=== PATIENT | female | born 1995 | race African-American/Black ===

== ENCOUNTER 2016-10-05 11:36 | Emergency (ER) | payer MEDICAID ==
[~2016-10-05] VITALS: Ht 165.1 cm; Wt 77.6 kg
[2016-10-05 13:07] VITALS: BP 126/79
== END 2016-10-05 14:38 | disposition home or self-care (01) ==
LOC: ER 11:45
DX: O26.891 Other specified pregnancy related conditions, first trimester (principal); S40.022A Contusion of left upper arm, initial encounter; S40.021A Contusion of right upper arm, initial encounter; R10.9 Unspecified abdominal pain; Z91.041 Radiographic dye allergy status; Z3A.01 Less than 8 weeks gestation of pregnancy; Y09 Assault by unspecified means; Y93.89 Activity, other specified; Y99.8 Other external cause status; Y92.89 Other specified places as the place of occurrence of the external cause
CPT/HCPCS: 76801; 81002

== ENCOUNTER 2017-03-25 16:00 | Observation (INO) | payer MEDICAID ==
[2017-03-25] MEDS ORDERED: LACTATED RINGER'S 1,000 ML IV ONE (17:29)
[2017-03-25] MEDS: TERBUTALINE SULFATE 1 MG/ML 1ML VIAL SC SCH ×2 (17:55→18:32)
[2017-03-25] MEDS ORDERED: BETAMETHASONE ACET (6MG/ML) 5ML VIAL IM ONE (19:15)
== END 2017-03-25 21:15 | disposition home or self-care (01) | DRG 566 ==
LOC: LDRP 16:00
PROVIDERS: ADMIT Specialist; ATTEND Specialist
DX: O26.893 Other specified pregnancy related conditions, third trimester (principal); R10.2 Pelvic and perineal pain; M54.5 Low back pain; Z3A.32 32 weeks gestation of pregnancy
CPT/HCPCS: 59025; 76815; 76817; 81002; 96372; G0378; J0702; J3105

== ENCOUNTER 2017-03-26 18:48 | Observation (INO) | payer MEDICAID ==
[2017-03-26] MEDS ORDERED: BETAMETHASONE ACET (6MG/ML) 5ML VIAL IM ONE (19:30)
== END 2017-03-26 20:10 | disposition home or self-care (01) | DRG 563 ==
LOC: LDRP 18:48
PROVIDERS: ADMIT Specialist; ATTEND Specialist
DX: O60.03 Preterm labor without delivery, third trimester (principal); O26.873 Cervical shortening, third trimester; Z3A.33 33 weeks gestation of pregnancy
CPT/HCPCS: 59025; 81002; G0378

== ENCOUNTER 2017-03-28 07:35 | Observation (INO) | payer MEDICAID ==
[2017-03-28] MEDS ORDERED: PREN-96 PO (08:44)
[2017-03-28] MEDS ORDERED: FERR-7 PO (08:46)
[2017-03-28] MEDS ORDERED: NIFE30TA76 PO (08:46)
[2017-03-28] MEDS ORDERED: NIF10C PO (08:46)
== END 2017-03-28 09:20 | disposition home or self-care (01) | DRG 566 ==
LOC: LDRP 07:35
PROVIDERS: ADMIT Obstetrics & Gynecology; ATTEND Obstetrics & Gynecology
DX: O26.93 Pregnancy related conditions, unspecified, third trimester (principal); Z3A.33 33 weeks gestation of pregnancy
CPT/HCPCS: 59025; 76815; 81002; G0378

== ENCOUNTER 2017-03-31 08:15 | Observation (INO) | payer MEDICAID ==
[~2017-03-31 08:15] MED LIST: FERR-7 PO; NIF10C PO; PREN-96 PO
== END 2017-03-31 10:20 | disposition home or self-care (01) | DRG 566 ==
LOC: LDRP 08:15
PROVIDERS: ADMIT Specialist; ATTEND Specialist
DX: O26.893 Other specified pregnancy related conditions, third trimester (principal); Z3A.33 33 weeks gestation of pregnancy
CPT/HCPCS: 59025; 76815; 81002; G0378

== ENCOUNTER 2017-04-04 11:35 | Observation (INO) | payer MEDICAID | END 2017-04-04 13:30 | disposition home or self-care (01) | DRG 563 | LOC: LDRP 11:35 | PROVIDERS: ADMIT Specialist; ATTEND Specialist | DX: O60.03 Preterm labor without delivery, third trimester (principal); Z3A.34 34 weeks gestation of pregnancy | CPT/HCPCS: 59025; 76818; 81002; G0378 ==

== ENCOUNTER 2017-04-24 15:25 | Observation (INO) | payer MEDICAID ==
[2017-04-24] MEDS ORDERED: LACTATED RINGER'S 1,000 ML IV ONE (16:15)
== END 2017-04-24 17:10 | disposition home or self-care (01) | DRG 566 ==
LOC: LDRP 15:25
PROVIDERS: ADMIT Specialist; ATTEND Specialist
DX: O26.893 Other specified pregnancy related conditions, third trimester (principal); R10.2 Pelvic and perineal pain; R10.30 Lower abdominal pain, unspecified; M25.552 Pain in left hip; M25.551 Pain in right hip; Z3A.00 Weeks of gestation of pregnancy not specified
CPT/HCPCS: 59025; 76818; 81002; G0378

== ENCOUNTER 2017-04-26 13:35 | Observation (INO) | payer MEDICAID | END 2017-04-26 15:30 | disposition home or self-care (01) | DRG 566 | LOC: LDRP 13:35 | PROVIDERS: ADMIT Obstetrics & Gynecology; ATTEND Obstetrics & Gynecology | DX: O26.893 Other specified pregnancy related conditions, third trimester (principal); R51 Headache; Z3A.37 37 weeks gestation of pregnancy | CPT/HCPCS: 59025; 76818; 81002; G0378 ==

== ENCOUNTER 2017-04-29 14:30 | Observation (INO) | payer MEDICAID | END 2017-04-29 15:45 | disposition home or self-care (01) | DRG 563 | LOC: LDRP 14:30 | PROVIDERS: ADMIT Specialist; ATTEND Specialist | DX: O60.03 Preterm labor without delivery, third trimester (principal); Z3A.37 37 weeks gestation of pregnancy | CPT/HCPCS: 59025; 76818; 81002; G0378 ==

== ENCOUNTER 2017-05-02 11:35 | Observation (INO) | payer MEDICAID | END 2017-05-02 13:30 | disposition home or self-care (01) | DRG 563 | LOC: LDRP 11:35 | PROVIDERS: ADMIT Specialist; ATTEND Specialist | DX: O60.03 Preterm labor without delivery, third trimester (principal); O99.333 Smoking (tobacco) complicating pregnancy, third trimester; Z3A.38 38 weeks gestation of pregnancy | CPT/HCPCS: 59025; 76818; 81002; G0378 ==

== ENCOUNTER 2018-05-12 10:46 | Emergency (ER) | payer SELFPAY ==
[~2018-05-12] VITALS: Ht 165.1 cm; Wt 69.9 kg
[~2018-05-12 10:46] MED LIST changes: -FERR-7 PO; -NIF10C PO
[2018-05-12 11:01] VITALS: BP 131/61
== END 2018-05-12 14:24 | disposition home or self-care (01) ==
LOC: ER 10:49
DX: N39.0 Urinary tract infection, site not specified (principal); Z91.041 Radiographic dye allergy status
CPT/HCPCS: 81002; 81025; 87070; 87210

== ENCOUNTER 2019-05-22 10:48 | Emergency (ER) | payer MEDICAID ==
[~2019-05-22] VITALS: Ht 162.6 cm; Wt 68.0 kg
[2019-05-22 11:29] VITALS: BP 125/75
== END 2019-05-22 13:35 | disposition home or self-care (01) ==
LOC: ER 10:50
DX: L24.9 Irritant contact dermatitis, unspecified cause (principal); Z91.041 Radiographic dye allergy status